=== PATIENT | female | born 1980 | race Caucasian/White ===

== ENCOUNTER 2023-01-10 08:45 | Emergency (ER) | payer OTHER ==
[~2023-01-10] VITALS: Ht 165.1 cm; Wt 81.6 kg
[2023-01-10] VITALS (7 sets, daily range): BP systolic 157–169; BP diastolic 103–119
[2023-01-10] MEDS ORDERED: LAMICTAL150 M1 PO (09:22)
[2023-01-10] MEDS ORDERED: ZOLPIDEM10 M1 PO (09:24)
[2023-01-10] MEDS ORDERED: WELLBUTRIN200 M1 PO (09:24)
[2023-01-10] MEDS ORDERED: FLEXERIL5 M1 PO (09:59)
[2023-01-10] MEDS ORDERED: DECADRON4 MG PO (09:59)
== END 2023-01-10 10:29 | disposition home or self-care (01) | DRG 556 ==
LOC: ED 08:45
DX: M25.511 Pain in right shoulder (principal)